=== PATIENT | female | born 1990 | race Caucasian/White ===

== ENCOUNTER 2019-06-13 13:05 | Emergency (ER) | payer BC ==
[~2019-06-13] VITALS: Ht 170.2 cm; Wt 72.7 kg
[2019-06-13 13:11] VITALS: TEMP 98.8
[2019-06-13 14:02] LABS: COLLECTION METHOD CLEAN CATCH
[2019-06-13 14:08] LABS: MUCOUS Present /lpf; PH 7 (5-8); SQUAMOUS EPITHELIAL 0-2 /hpf; URINE APPEARANCE Clear; URINE BACTERIA Rare /hpf; URINE BILIRUBIN Negative (NEGATIVE); URINE BLOOD Negative (NEGATIVE); URINE COLOR Straw; URINE GLUCOSE Negative (NEGATIVE); URINE KETONE Negative (NEGATIVE); URINE LEUKOCYTE ESTERASE Negative (NEGATIVE); URINE NITRATE Negative (NEGATIVE); URINE PROTEIN(semi-quant) Negative (NEGATIVE); URINE RBC None Seen /hpf; URINE UROBILINOGEN Negative (NEGATIVE)
[2019-06-13] MEDS ORDERED: ULTRAM 50MG TAB50 MG PO (15:25)
[2019-06-13 15:40] VITALS: BP 135/79; PULSE 60
== END 2019-06-13 15:40 | disposition home or self-care (01) ==
LOC: COL.ER 13:05
PROVIDERS: Nurse Practitioner Primary Care
DX: S39.012A Strain of muscle, fascia and tendon of lower back, initial encounter (principal); X58.XXXA Exposure to other specified factors, initial encounter
CPT/HCPCS: J1885